=== PATIENT | female | born 1990 | race Caucasian/White ===

== ENCOUNTER 2018-05-08 21:58 | Observation (INO) | payer OTHER ==
[2018-05-08] MEDS ORDERED: SODIUM CHLORIDE 0.9% 1,000 ML IV STA (22:07)
--- NOTE | 2018-05-08 22:12 | ED ---
General Adult HPI - General Chief complaint: Overdose Stated complaint: drug ingestion Time Seen by Provider: 05/08/18 22:01 Source: patient, RN notes reviewed Mode of arrival: EMS Limitations: no limitations - History of Present Illness Initial comments: Patient is a 27-year-old female presenting to the emergency department by EMS with police escort. Patient states she made Decisions. Patient states she was being pulled over and ingested whatever was in a brown paper bag that she believes was drugs. Patient states she is unclear exactly what she ingested. Patient states she does have a history of previous drug problems however has been clean recently up until this incident. Patient states she is however unclear how far along. No abdominal or pelvic pain. No vaginal bleeding. Patient has not had care. Patient's only complaint is that she feels drowsy. Patient denies any injury. - Related Data Home Medications Medication Instructions Recorded Confirmed No Known Home Medications 05/08/18 05/08/18 Allergies Allergy/AdvReac Type Severity Reaction Status Date / Time No Known Allergies Allergy Verified 05/08/18 22:08 Review of Systems ROS Statement: Those systems with pertinent positive or pertinent negative responses have been documented in the HPI. ROS Other: All systems not noted in ROS Statement are negative. Constitutional: Denies: fever Eyes: Denies: eye pain ENT: Denies: ear pain Respiratory: Denies: cough Cardiovascular: Denies: chest pain Endocrine: Denies: fatigue Gastrointestinal: Denies: abdominal pain, vomiting Genitourinary: Denies: dysuria Musculoskeletal: Denies: back pain Skin: Denies: rash Neurological: Denies: weakness Past Medical History Past Medical History: No Reported History History of Any Multi-Drug Resistant Organisms: None Reported Past Surgical History: Back Surgery Past Psychological History: Depression Smoking Status: Former smoker Past Drug Use History: Heroin, Methamphetamine General Exam Limitations: no limitations General appearance: alert, in no apparent distress, appears intoxicated Head exam: Present: atraumatic Eye exam: Present: normal appearance, PERRL, EOMI, nystagmus ENT exam: Present: normal oropharynx Neck exam: Present: normal inspection. Absent: tenderness Respiratory exam: Present: normal lung sounds bilaterally Cardiovascular Exam: Present: regular rate, normal rhythm GI/Abdominal exam: Present: distended (Above the umbilicus consistent with gravid state). Absent: tenderness, guarding Extremities exam: Present: normal inspection. Absent: pedal edema, calf tenderness Neurological exam: Present: alert. 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 MD 136. QRS 84. QT 362. QTC 48. Normal axis. Normal QRS. No acute ST change. Medical Decision Making - Medical Decision Making Patient reevaluated without significant change. Potassium was ordered. Case was discussed with practitioner Rayna, who will admit for Dr. Basurto, covering for hospital call. Case was also discussed with Dr. Collins who does request ultrasound and nonstress test at 6 AM. Nursing staff did come down earlier and monitored patient upon arrival. Dr. Collins did get in touch with them. - Lab Data Result diagrams: 05/08/18 22:20 05/08/18 22:20 Lab Results 05/08/18 05/08/18 05/08/18 Range/Units 22:20 22:20 22:20 WBC 7.2 (3.8-10.6) k/uL RBC 3.17 L (3.80-5.40) m/uL Hgb 9.8 L (11.4-16.0) gm/dL Hct 29.4 L (34.0-46.0) % MCV 92.8 (80.0-100.0) fL MCH 30.8 (25.0-35.0) pg MCHC 33.2 (31.0-37.0) g/dL RDW 13.5 (11.5-15.5) % Plt Count 279 (150-450) k/uL Neutrophils % 70 % Lymphocytes % 22 % Monocytes % 5 % Eosinophils % 1 % Basophils % 0 % Neutrophils # 5.1 (1.3-7.7) k/uL Lymphocytes # 1.6 (1.0-4.8) k/uL Monocytes # 0.4 (0-1.0) k/uL Eosinophils # 0.1 (0-0.7) k/uL Basophils # 0.0 (0-0.2) k/uL PT (9.0-12.0) sec INR (<1.2) APTT (22.0-30.0) sec Sodium 136 L (137-145) mmol/L Potassium 3.1 L (3.5-5.1) mmol/L Chloride 107 (98-107) mmol/L Carbon Dioxide 21 L (22-30) mmol/L Anion Gap 8 mmol/L BUN 9 (7-17) mg/dL Creatinine 0.38 L (0.52-1.04) mg/dL Est GFR (CKD-EPI)AfAm >90 (>60 ml/min/1.73 sqM) Est GFR (CKD-EPI)NonAf >90 (>60 ml/min/1.73 sqM) Glucose 90 (74-99) mg/dL Calcium 8.8 (8.4-10.2) mg/dL Total Bilirubin 0.5 (0.2-1.3) mg/dL AST 24 (14-36) U/L ALT 34 (9-52) U/L Alkaline Phosphatase 90 (38-126) U/L Creatine Kinase 56 (30-135) U/L Total Protein 6.2 L (6.3-8.2) g/dL Albumin 3.4 L (3.5-5.0) g/dL HCG, Quant 43870.2 mIU/mL Urine HCG, Qual (Not Detectd) Salicylates <1.0 mg/dL Urine Opiates Screen (NotDetected) Ur Oxycodone Screen (NotDetected) Urine Methadone Screen (NotDetected) Ur Propoxyphene Screen (NotDetected) Acetaminophen <10.0 ug/mL Ur Barbiturates Screen (NotDetected) U Tricyclic Antidepress (NotDetected) Ur Phencyclidine Scrn (NotDetected) Ur Amphetamines Screen (NotDetected) U Methamphetamines Scrn (NotDetected) U Benzodiazepines Scrn (NotDetected) Urine Cocaine Screen (NotDetected) U Marijuana (THC) Screen (NotDetected) Serum Alcohol <10 mg/dL Blood Type A Positive Blood Type Recheck No 05/08/18 05/08/18 05/08/18 Range/Units 22:20 23:57 23:57 WBC (3.8-10.6) k/uL RBC (3.80-5.40) m/uL Hgb (11.4-16.0) gm/dL Hct (34.0-46.0) % MCV (80.0-100.0) fL MCH (25.0-35.0) pg MCHC (31.0-37.0) g/dL RDW (11.5-15.5) % Plt Count (150-450) k/uL Neutrophils % % Lymphocytes % % Monocytes % % Eosinophils % % Basophils % % Neutrophils # (1.3-7.7) k/uL Lymphocytes # (1.0-4.8) k/uL Monocytes # (0-1.0) k/uL Eosinophils # (0-0.7) k/uL Basophils # (0-0.2) k/uL PT 10.0 (9.0-12.0) sec INR 1.0 (<1.2) APTT 24.0 (22.0-30.0) sec Sodium (137-145) mmol/L Potassium (3.5-5.1) mmol/L Chloride (98-107) mmol/L Carbon Dioxide (22-30) mmol/L Anion Gap mmol/L BUN (7-17) mg/dL Creatinine (0.52-1.04) mg/dL Est GFR (CKD-EPI)AfAm (>60 ml/min/1.73 sqM) Est GFR (CKD-EPI)NonAf (>60 ml/min/1.73 sqM) Glucose (74-99) mg/dL Calcium (8.4-10.2) mg/dL Total Bilirubin (0.2-1.3) mg/dL AST (14-36) U/L ALT (9-52) U/L Alkaline Phosphatase (38-126) U/L Creatine Kinase (30-135) U/L Total Protein (6.3-8.2) g/dL Albumin (3.5-5.0) g/dL HCG, Quant mIU/mL Urine HCG, Qual Detected (Not Detectd) Salicylates mg/dL Urine Opiates Screen Not Detected (NotDetected) Ur Oxycodone Screen Not Detected (NotDetected) Urine Methadone Screen Not Detected (NotDetected) Ur Propoxyphene Screen Not Detected (NotDetected) Acetaminophen ug/mL Ur Barbiturates Screen Not Detected (NotDetected) U Tricyclic Antidepress Not Detected (NotDetected) Ur Phencyclidine Scrn Not Detected (NotDetected) Ur Amphetamines Screen Detected H (NotDetected) U Methamphetamines Scrn Not Detected (NotDetected) U Benzodiazepines Scrn Detected H (NotDetected) Urine Cocaine Screen Not Detected (NotDetected) U Marijuana (THC) Screen Detected H (NotDetected) Serum Alcohol mg/dL Blood Type Blood Type Recheck Disposition Clinical Impression: Drug overdose Disposition: ADMITTED IP TO THIS HOSP Is patient prescribed a controlled substance at d/c from ED?: No Referrals: None,Stated [Primary Care Provider] - 1-2 days Decision Time: 00:27
[2018-05-08 22:36] LABS: Basophils % (A) 0 %; Eosinophils # (A) 0.1 k/uL (0-0.7); Eosinophils % (A) 1 %; HCT 29.4 % (34.0-46.0); HGB 9.8 gm/dL (11.4-16.0); Lymphocytes # (A) 1.6 k/uL (1.0-4.8); Lymphocytes % (A) 22 %; MCH 30.8 pg (25.0-35.0); MCHC 33.2 g/dL (31.0-37.0); MCV 92.8 fL (80.0-100.0); Monocytes # (A) 0.4 k/uL (0-1.0); Monocytes % (A) 5 %; Neutrophils # (A) 5.1 k/uL (1.3-7.7); Neutrophils % (A) 70 %; Platelet Count 279 k/uL (150-450); RBC 3.17 m/uL (3.80-5.40); RDW 13.5 % (11.5-15.5); WBC 7.2 k/uL (3.8-10.6)
[2018-05-08 22:41] LABS: ALT 34 U/L (9-52); AST 24 U/L (14-36); Acetaminophen <10.0 ug/mL; Albumin 3.4 g/dL (3.5-5.0); Alcohol <10 mg/dL; Alkaline Phosphatase 90 U/L (38-126); Anion Gap 8 mmol/L; Blood Urea Nitrogen 9 mg/dL (7-17); Calcium 8.8 mg/dL (8.4-10.2); Carbon Dioxide 21 mmol/L (22-30); Chloride 107 mmol/L (98-107); Creatine Kinase 56 U/L (30-135); Glucose 90 mg/dL (74-99); Potassium 3.1 mmol/L (3.5-5.1); Salicylate <1.0 mg/dL; Sodium 136 mmol/L (137-145); Total Bilirubin 0.5 mg/dL (0.2-1.3); Total Protein 6.2 g/dL (6.3-8.2)
[2018-05-08 22:56] LABS: HCG,Quantitative Serum 14906.2 mIU/mL
[2018-05-09 00:14] LABS: Amphetamine Screen,Urine Detected (NotDetected); Barbiturate Screen,Urine Not Detected (NotDetected); Benzodiazepines Screen,Urine Detected (NotDetected); Cocaine Screen,Urine Not Detected (NotDetected); Methadone Screen, Urine Not Detected (NotDetected); Opiate Screen,Urine Not Detected (NotDetected); Oxycodone Screen, Urine Not Detected (NotDetected); Phencyclidine Screen,Urine Not Detected (NotDetected); Tricyclic Antidepressant,Urine Not Detected (NotDetected); Urn Cannabinoid Scrn Detected (NotDetected)
[2018-05-09] MEDS ORDERED: POTASSIUM CHLORIDE 2 MEQ/ML 20 ML VIAL IV STA (00:22)
[2018-05-09] MEDS ORDERED: POTASSIUM CHLORIDE 20 MEQ in WATER FOR INJECTION 1 100ML.BAG IVPB STA (00:24)
[2018-05-09] MEDS ORDERED: NALOXONE 0.4 MG/ML 1 ML VIAL IV PRN (00:27)
[2018-05-09] MEDS ORDERED: SODIUM CHLORIDE 0.9% 1,000 ML IV SCH (00:30)
--- NOTE | 2018-05-09 01:16 | US ---
EXAMINATION TYPE: US OB >= 14 wk fetus DATE OF EXAM: 05/09/2018 COMPARISON: None CLINICAL HISTORY: with decreased responsivenessPatient not responsive check growth hr not s ure of due date. TECHNIQUE: Transabdominal (TA) GESTATIONAL AGE / DATING Physician Established: Unknown Dates by LMP: LMP unknown Dates by First Scan: No previous this is first scan Dates by Current Scan: (34 weeks/5 days) EDC: 06/15/2018 SURVEY IUP: Single PLACENTA: Fundal PREVIA: No Previa DIANNE: 11.23 cm Normal CERVICAL LENGTH (transabdominal: norm > 3.0cm): 3.8cm BIOMETRY PRESENTATION: Vertex LIE: Longitudinal BPD: 8.87 cm 35 weeks / 6 days HC: 30.95 cm 34 weeks / 4 days AC: 31.87 cm 35 weeks / 6 days FL: 6.76 cm 34 weeks / 5 days ESTIMATED WEIGHT IN GRAMS: 2667 grams ESTIMATED WEIGHT IN LBS/OZ: 5 lbs. 14 oz. HC/AC: 0.97cm Normal FL/AC: 76.17cm Normal HEART RATE: 124 bpm RHYTHM: Normal Viable IUP 35w5d LAURENT 1020/2018 HR 124 BPM IMPRESSION: Ultrasound gestational age is 35 weeks 5 days. Amniotic fluid is adequate. Cervix is closed. No compl icating process seen. Estimated weight is 2667 g.
[2018-05-09 04:51] VITALS: BMI 25.7
[2018-05-09 05:03] VITALS: BP 115/68; PULSE 84; RESP 16; TEMP 96.9
--- NOTE | 2018-05-09 08:17 | P.OBCN ---
History of Present Illness Consult date: 05/09/18 Chief complaint: Drug overdose History of present illness: This is a 27-year-old white female 4 para 2012 EDC 06/22/2018 at 33 4/7 weeks gestation. Patient was brought to the emergency room last night with an acute drug overdose. She states she was in a car that was pulled over by the police. There were drugs in the car and therefore she ingested them. She states she has had care in [place] but is unable to share with me the physician's name. She has a known due date and also knows that this child is a girl. She is planning on giving the baby up for adoption but will not share with me the name of the adoption agency. She is in town from [place] for a custody hearing in the Family Court scheduled for 06/06/2018 to try to regain custody of her son. She denies vaginal bleeding or fluid leakage. There is been no abdominal trauma. Fetus is been active throughout the . Past medical history the patient will not answer for me. Past surgical history she states she has a rinku in her back and has had a previous ear operation, along with the previous voluntary termination of . Current medications vitamins daily. ALLERGIES none known. Social history patient has been a tobacco smoker for 10 years, admits to 6 cigarettes a day at this time. She is single. She denies recreational drug use including marijuana and cocaine benzodiazepines or amphetamines. Patient admitted to previous heroin use when she was interviewed in the emergency room. Family history she states is unremarkable. Past obstetric history she states she has had 2 vaginal deliveries but will not share information with birthweight or delivery details stating "both her personal questions" On examination patient is argumentative, angry, and confrontational. She is 5 foot 7 inches, 170 pounds. Temperature 96.9, pulse 84, blood pressure 115/68, respirations 16, O2 saturation 100% on room air. She will not allow a physical examination. Ultrasound reveals zimmer vertex intrauterine , viable , 2667 g or 5 lbs. 14 oz. There is normal amniotic fluid index noted. NST on admission was nonreactive, there is a reactive NST this morning with a baseline of 135 and accelerations into the 160s. No uterine contractions noted. Hemoglobin is low at 9.8, white count 7.2, potassium low at 3.1. Urine drug screen is positive for marijuana, amphetamines, and benzodiazepines. Impression: 33-4/7 weeks intrauterine with acute drug overdose. From the obstetrical standpoint the patient is stable, she is not clean or sober at this time. Although I have approached the patient with objective professionalism , patient has kicked me out of her room with multiple vulgarities and is demanding to have no further contact with me. Plan: We will obtain type and screen, VDRL, HIV, hepatitis B surface antigen, hepatitis C, and rubella status. Patient's plan is to go back to [place] for delivery. I will however obtain a social science research assistant consult at this time. We will follow the with daily NST's. Thank you for the consultation. Review of Systems Negative except as in HPI Constitutional: Reports as per HPI Past Medical History Past Medical History: No Reported History History of Any Multi-Drug Resistant Organisms: None Reported Past Surgical History: Back Surgery Additional Past Surgical History / Comment(s): ear surgery, voluntary termination of in the past Past Psychological History: Depression Smoking Status: Current every day smoker Past Drug Use History: Heroin, Methamphetamine - Past Family History Mother Family Medical History: Unable to Obtain Medications and Allergies Home Medications Medication Instructions Recorded Confirmed Type No Known Home Medications 05/08/18 05/08/18 History Allergies Allergy/AdvReac Type Severity Reaction Status Date / Time No Known Allergies Allergy Verified 05/08/18 22:08 Exam Vital Signs Temp Pulse Pulse Pulse Resp BP BP 05/09/18 05:02 96.9 F L 84 16 115/68 05/09/18 02:41 97.4 F L 77 18 97/54 05/09/18 01:15 86 18 98/55 05/09/18 00:15 84 18 103/58 05/08/18 23:30 87 18 104/67 05/08/18 22:32 105 H 05/08/18 22:00 97.8 F 116 H 20 124/74 Pulse Ox 05/09/18 05:02 100 05/09/18 02:41 98 05/09/18 01:15 97 05/09/18 00:15 97 05/08/18 23:30 97 05/08/18 22:32 05/08/18 22:00 100 Intake and Output 05/08/18 05/09/18 05/09/18 22:59 06:59 14:59 Intake Total 1500 Balance 1500 Intake: Amount of Fluid Infused ( 1200 ml) Intake, IV Titration 300 Amount Sodium Chloride 0.9% 1, 300 000 ml @ 100 mls/hr IV . Q10H BRIANA Rx#:[id number] Other: Voiding Method Toilet # Voids 1 Weight 63.503 kg 74.5 kg See dictation under HPI please Results Result Diagrams: 05/08/18 22:20 05/08/18 22:20 Abnormal Lab Results - Last 24 Hours (Table) 05/08/18 05/08/18 05/08/18 Range/Units 22:20 22:20 23:57 RBC 3.17 L (3.80-5.40) m/uL Hgb 9.8 L (11.4-16.0) gm/dL Hct 29.4 L (34.0-46.0) % Sodium 136 L (137-145) mmol/L Potassium 3.1 L (3.5-5.1) mmol/L Carbon Dioxide 21 L (22-30) mmol/L Creatinine 0.38 L (0.52-1.04) mg/dL Total Protein 6.2 L (6.3-8.2) g/dL Albumin 3.4 L (3.5-5.0) g/dL Ur Amphetamines Screen Detected H (NotDetected) U Benzodiazepines Scrn Detected H (NotDetected) U Marijuana (THC) Screen Detected H (NotDetected) Assessment and Plan Assessment: 33-4/7 weeks intrauterine , vertex, viable, reassuring from the obstetrical standpoint this morning. Multiple social issues including recent drug overdose, inconsistent and scant care. Patient has basically kicked me out of the room with multiple vulgarities and asked to not see me again. Plan: We will obtain social science research assistant consult. labs to be drawn this morning. Daily nonstress testing until discharge. My partnerswill follow with the patient as appropriate. Time with Patient: Greater than 30
--- NOTE | 2018-05-09 15:47 | HP ---
HISTORY AND PHYSICAL HISTORY AND PHYSICAL AND DISCHARGE SUMMARY: CHIEF COMPLAINT: Drug overdose. HISTORY: This 27-year-old woman who was apparently visiting from [place], was admitted with drug overdose and drug ingestion. The patient was taken to emergency room by the police escort and according to the ER note, the patient was apparently pulled over and ingested whatever was in a brown paper bag, which she believes was drugs. The patient continues to be coherent and was seen by Dr. Collins, but however the patient left the hospital AGAINST MEDICAL ADVICE. The prognosis remained guarded throughout the hospitalization. The patient was apparently verbally abusive also to Dr. Collins. Please refer to the multiple staff notes and the ER notes and consultations for further details. FINAL DIAGNOSES: 1. Status post drug overdose. 2. . MMODL / IJN: [id number] /
== END 2018-05-09 08:30 | disposition left against medical advice (07) ==
LOC: EC 21:58 → 5MS5E 05-09 00:27
PROVIDERS: ADMIT Hospitalist; ATTEND Hospitalist
DX: T50.901A Poisoning by unspecified drugs, medicaments and biological substances, accidental (unintentional), initial encounter (principal); O9A.213 Injury, poisoning and certain other consequences of external causes complicating pregnancy, third trimester; Z53.21 Procedure and treatment not carried out due to patient leaving prior to being seen by health care provider; F32.9 Major depressive disorder, single episode, unspecified; O99.343 Other mental disorders complicating pregnancy, third trimester; D64.9 Anemia, unspecified; O99.013 Anemia complicating pregnancy, third trimester; Z3A.33 33 weeks gestation of pregnancy; O09.33 Supervision of pregnancy with insufficient antenatal care, third trimester; O99.333 Smoking (tobacco) complicating pregnancy, third trimester; E87.6 Hypokalemia; O26.893 Other specified pregnancy related conditions, third trimester
CPT/HCPCS: 99285; 96365; 96366; 96361; 36415; 93005; 86900; 86901; 80053; 82550; 85025; 85610; 85730; 81025; 84702; 80306; 83520 ×2; 80320; 76805; G0378; J3480